=== PATIENT | male | born 1995 | race Caucasian/White ===

== ENCOUNTER 2019-06-30 18:29 | Emergency (ER) | payer OTHER ==
[~2019-06-30] VITALS: Ht 185.4 cm; Wt 77.1 kg
--- NOTE | 2019-06-30 19:02 | NUR ---
ultrasound called in
--- NOTE | 2019-06-30 19:03 | NUR ---
ultrasound will be here in about 45 minutes
--- NOTE | 2019-06-30 20:55 | Diagnostic Imaging Report ---
EXAM: Left Lower Extremity Duplex Ultrasound INDICATION: Left leg pain ^[id number] ^[id number] COMPARISON: None TECHNIQUE: Tian scale, color Doppler and spectral waveform analysis of the left lower extremity deep venous system was performed. FINDINGS: Common Femoral: Fully compressible with normal spontaneous waveforms. Proximal Greater Saphenous: Fully compressible. Femoral: Fully compressible with normal spontaneous waveforms. Normal response to augmentation. Proximal Deep Femoral: Normal spontaneous waveforms. Popliteal: Fully compressible with normal spontaneous waveforms. IMPRESSION: No evidence of deep venous thrombosis above the left calf. Signed by: Dr. Abdoul Sandoval M.D. on 06/30/2019 8:52 PM
[2019-06-30 21:44] VITALS: BP 160/79
== END 2019-06-30 21:46 | disposition home or self-care (01) ==
LOC: FSED 18:29
DX: M79.662 Pain in left lower leg (principal); Z98.890 Other specified postprocedural states
CPT/HCPCS: 93970; 93971; 99283